=== PATIENT | male | born 1960 | race Two or more races ===

== ENCOUNTER 2024-08-01 13:00 | Day surgery (SDC) | payer MEDICARE, MEDICAID, SELFPAY ==
[2024-07-29 12:47] LABS: Basophils % (Auto) 1 % (0-2.5); Eosinophils # (Auto) 0.4 Thou/mm3 (0.0-0.5); Eosinophils % (Auto) 6 % (0-10); Hematocrit 43.9 % (41.0-53.0); Hemoglobin 14.9 g/dL (13.5-16.0); Immature Granulocytes % (Auto) 0 % (0-0); Immature Granulocytes Auto 0.01 Thou/mm3 (0.00-0.00); Lymphocytes # (Auto) 1.6 Thou/mm3 (1.0-4.8); Lymphocytes % (Auto) 25 % (10-50); Mean Corpuscular HGB Conc 33.9 g/dl (31.0-37.0); Mean Corpuscular Hemoglobin 29.3 pg (25.0-35.0); Mean Corpuscular Volume 86 fL (80-100); Monocytes # (Auto) 0.3 Thou/mm3 (0.0-0.8); Monocytes % (Auto) 5 % (0-12); Neutrophils # (Auto) 4.1 Thou/mm3 (1.8-7.7); Neutrophils % (Auto) 64 % (37-80); Nucleated Red Blood Cell % 0 /100 WBC (0); Platelet Count 169 Thou/mm3 (140-440); RDW Standard Deviation 44.2 fL (35.1-43.9); Red Blood Count 5.09 Miln/mm3 (4.50-5.90); White Blood Count 6.4 Thou/mm3 (3.8-10.6)
[2024-07-29 13:03] LABS: Partial Thromboplastin Time 29.7 Seconds (22.0-36.0); Prothrombin Time 11.4 Seconds (9.0-12.2)
[2024-07-29 13:12] LABS: Alanine Aminotransferase 27 U/L (10-49); Albumin, Serum 4.3 gm/dL (3.4-4.8); Albumin/Globulin Ratio 1.5 (1.2-2.2); Alkaline Phosphatase 73 U/L (46-116); Anion Gap 8 (7-16); Aspartate Amino Transferase 25 U/L (0-34); BUN/Creatinine Ratio 17 Ratio (12-20); Bilirubin,Total 0.3 mg/dL (0.3-1.2); Blood Urea Nitrogen 12 mg/dL (9-23); Calcium 9.5 mg/dL (8.3-10.6); Calcium (Corrected) 9.5 mg/dL (8.5-10.1); Carbon Dioxide 26.1 mMol/L (20.0-31.0); Chloride 109 mMol/L (98-107); Creatinine (Component) 0.7 mg/dL (0.6-1.3); Globulin 2.8 gm/dL (2.3-3.5); Glucose 134 mg/dL (74-106); Osmolality,Calculated 286 (275-295); Potassium 4.2 mMol/L (3.4-5.1); Sodium 143 mMol/L (136-145); Total Protein 7.1 gm/dL (5.7-8.2); eGFR > 60 See Note
[2024-08-01 13:38] VITALS: BMI 37.5
[2024-08-01 13:40] VITALS: BP 158/85; PULSE 56; RESP 13; TEMP 36.7; O2SAT 96
[2024-08-01] MEDS: RINGERS LACTATED 1000 ML 1,000 ML 100 ML IV (14:43)
[2024-08-01 15:15] VITALS: BP 106/64; PULSE 52; RESP 12; TEMP 37.2; O2SAT 95
[2024-08-01 15:25] VITALS: BP 125/72; PULSE 46; RESP 17; O2SAT 96
[2024-08-01 15:35] VITALS: BP 119/73; PULSE 51; RESP 16; O2SAT 96
[2024-08-01 15:45] VITALS: BP 125/82; PULSE 48; RESP 16; O2SAT 95
== END 2024-08-01 16:15 | disposition home or self-care (01) ==
PROVIDERS: PCP Physician Assistant; Referring Provider Surgery; Visit Provider Surgery
PROC: 0DBE8ZX Excision of Large Intestine, Via Natural or Artificial Opening Endoscopic, Diagnostic (ICD-10-PCS; CPT 45380; principal; 2024-08-01 13:00)
DX: Z12.11 Encounter for screening for malignant neoplasm of colon (principal)
CPT/HCPCS: G0121; 36415; 80053; 85025; 85610; 85730; J7120

== ENCOUNTER 2024-11-07 10:44 | Inpatient (IN) | payer MEDICARE, MEDICAID, SELFPAY ==
[2024-11-07] VITALS (15 sets, daily range): BP systolic 99–143; BP diastolic 55–76; PULSE 53–112; RESP 16–95; TEMP 36.5–40.3; O2SAT 86–98; BMI 37.1; BMI 37.3
--- NOTE | 2024-11-07 10:58 | PC.NURSE ---
PT HERE WITH C/O GENERLIZED WEAKNESS, FEVER, CHILLS, AND COUGH FOR 4 DAYS. PT VERY DIAPHORETIC
--- NOTE | 2024-11-07 11:02 | EDNOTE_ITS ---
ED Weakness RME/HPI General Chief complaint: Fever Stated complaint: FEVER/COUGH/CHILLS/WEAKNESS FOR 4 DAYS Time Seen by Provider: 11/07/24 11:00 Arrival date/time: 11/07/24 10:44 Limitations: no limitations RME / HPI RME / HPI Narrative: 63-year-old male with a history of poliomyelitis, hypertension, is brought in by EMS for generalized weakness and shortness of breath. He states he developed gross hematuria 3 days ago. Today he felt fatigued and has shortness of breath. This morning he developed abdominal pain and had a single episode of nausea and vomiting. He states he took an unknown antibiotic that was prescribed to his son when he was brought in by EMS, his oxygen was 84% on room air. He has not oxygen dependent at baseline. He denies any falls or injuries. He has had no syncopal episodes. He did arrive with a fever which triggered our sepsis alert. MD Complaint: generalized weakness Location: generalized Related Data Home Medications ?Medication ?Instructions ?Recorded ?Confirmed celecoxib 200 mg capsule 200 mg PO Q12H 08/01/2407/19 lisinopril 40 mg tablet 40 mg PO QDAY 08/01/2408/01 semaglutide (weight loss) 0.25 0.25 mg subcut Q7D 07/1908/01/24 mg/0.5 mL subcutaneous pen injector (Wegovy) tamsulosin 0.4 mg capsule 0.4 mg PO Q24H 08/01/2407/19 Allergies Allergy/AdvReac Type Severity Reaction Status Date / Time No Known Drug Allergies Allergy Unknown Verified 08/01/24 13:30 Review of Systems Review of Systems Systems Reviewed: All systems reviewed, normal except as documented ED Exam General Limitations: Present no limitations General appearance: Present alert and in no apparent distress Head Head exam: Present atraumatic Eye Eye exam: Present normal appearance, PERRL and EOMI ENT ENT exam: Present normal exam, normal oropharynx and mucous membranes moist Neck Neck exam: Present normal inspection, full ROM and trachea midline Chest Chest inspection: Present normal inspection and symmetric chest wall rise Respiratory Respiratory exam: Present normal lung sounds bilaterally Cardiovascular Cardiovascular exam: Present regular rate, normal rhythm and normal heart sounds Abdominal Exam Abdominal exam: Present soft and normal bowel sounds Extremities Exam Extremities exam: Present normal inspection and full ROM Back Exam Back exam: Present normal inspection and full ROM Neurological Exam Neurological exam: Present alert, oriented X3 and CN II-XII intact Psychiatric Psychiatric exam: Present normal affect and normal mood Skin Skin exam: Present warm, dry, intact and normal color Course Quality Measures none Orders Category Date Time Status Bedside Blood Glucose NOW Care 11/07/24 11:09 Active Bedside COVID-19 Antigen Test NOW Care 11/07/24 13:50 Active Bedside Influenza A&B Antigen Test NOW Care 11/07/24 13:53 Completed COVID-19 Screening Questionnaire NOW Care 11/07/24 14:[address] Screening NOW Care 11/07/24 11:[address] Screening NOW Care 11/07/24 12:[address] Screening X1 Care 11/07/24 11:09 Completed Emergency Department Clinician Q4H START 00 Care 11/07/24 11:09 Completed Decision to Admit X1 Care 11/07/24 14:52 Active EKG (ED ONLY) *Do not use* NOW Care 11/07/24 11:07 Completed Dupree [Urinary Catheter] QS Care 11/07/24 14:49 Active Insert IV NOW Care 11/07/24 11:09 Completed Strict Intake and Output Routine Care 11/07/24 11:[address] abd pel w con SEPSIS GLEN Stat Exams 11/07/24 11:09 Completed EKG (ED Only) Stat Exams 11/07/24 11:07 Draft XR chest 1V SEPSIS PROTOCOL Stat Exams 11/07/24 11:09 Completed BNP [B-Type Natriuretic Peptide] Stat Lab 11/07/24 11:00 Completed Blood Culture (Lab) Stat Lab 11/07/24 11:00 Received CBC Stat Lab 11/07/24 11:00 Completed Comprehensive Metabolic Panel Stat Lab 11/07/24 11:00 Completed Lactate (Lactic Acid) Stat Lab 11/07/24 11:00 Completed Lactic Acid, 3 HR Stat Lab 11/07/24 14:40 Completed Partial Thromboplastin Time Stat Lab 11/07/24 11:00 Completed Procalcitonin Stat Lab 11/07/24 11:00 Completed Prothrombin Time with INR Stat Lab 11/07/24 11:00 Completed Troponin I Stat Lab 11/07/24 11:00 Completed Troponin I Stat Lab 11/07/24 13:57 Received Type and Screen Stat Lab 11/07/24 11:00 Completed Urinalysis Stat Lab 11/07/24 13:15 Completed Urine Culture Stat Lab 11/07/24 11:09 Received Acetaminophen Tab [Tylenol ES Tab] Med 11/07/24 11:27 Discontinued 1,000 mg PO X1 ONE Ondansetron Inj [Zofran Inj] Med 11/07/24 11:25 Discontinued 4 mg IVP X1 ONE Sodium Chloride 0.9% 1000 ml [Ns] 1,914 ml Med 11/07/24 11:09 Discontinued IV 1,914 mls/hr cefTRIAXone [Rocephin] 2 gm Med 11/07/24 11:11 Discontinued SODIUM CHLORIDE 0.9% (Popper) [Ns 0.9% (P)] 50 ml IV X1 fentaNYL INJ [Sublimaze Inj] Med 11/07/24 11:25 Discontinued 25 mcg IVP X1 ONE Oxygen Delivery NOW RT 11/07/24 11:09 Completed Vital Signs Vital signs: Vital Signs Temperature 102.9 F H 11/07/24 10:58 Pulse Rate 104 H 11/07/24 10:58 Respiratory Rate 18 11/07/24 10:58 Blood Pressure 99/55 L 11/07/24 10:58 Pulse Oximetry (%) 86 L 11/07/24 10:58 Oxygen Delivery Method Room Air 11/07/24 10:58 Oxygen Flow Rate 3 11/07/24 10:58 Weakness MDM Narrative MDM Narrative:: 63-year-old male with a history of poliomyelitis, hypertension, is brought in by EMS for generalized weakness and shortness of breath. He states he developed gross hematuria 3 days ago. Today he felt fatigued and has shortness of breath. This morning he developed abdominal pain and had a single episode of nausea and vomiting. He states he took an unknown antibiotic that was prescribed to his son when he was brought in by EMS, his oxygen was 84% on room air. He has not oxygen dependent at baseline. He denies any falls or injuries. He has had no syncopal episodes. He did arrive with a fever which triggered our sepsis alert. On initial exam, patient was febrile and had mild tachycardia. Initial blood pressure was 99/55. Oxygenation was 86% on room air. He was given 2 L of oxygen via nasal cannula and this improved. CBC is unremarkable. Metabolic panel reveals hyperglycemia at 155 and is otherwise unremarkable. UA reveals 100 leukocytes and 7 erythrocytes. Initial troponin was mildly elevated. BNP is unremarkable. Enhanced CT of the chest, abdomen, and pelvis was obtained which revealed cystitis pattern and a 2 m stone in the bladder. There horseshoes shaped kidneys along with hydronephrosis. No evidence of pneumonia. Patient was given 2 L of normal saline in addition to ceftriaxone. He was given a gram of acetaminophen. His blood pressure did improve and his fever resolved. We did initially try to wean him off oxygen and he desaturated down to 88% on room air while at rest. Cannot explain his hypoxia at this time. Patient may benefit from a CTA of his chest and abdomen however he just received contrast studies. This discussed with the attending ER physician. We will admit to medicine to continue care and consider CT of the chest to assess for possible pulmonary emboli as a source of his elevated troponin and hypoxia. Our hospitalist was contacted at approximately 1450 p.m. and agreed to see the patient. Patient data External records reviewed:: EMS form Clinical information provided by:: patient and EMS Social determinants that could affect healthcare access:: none Patient has the following chronic illnesses:: Hypertension How is presenting disease/condition affected by chronic disease/condition?: uneffected by Evaluation data The following diagnostics were reviewed and interpreted by me:: EKG tracing(s) (Sinus tachycardia at [address] bpm. [address] changes.) Lab and/or radiology exams considered but not ordered:: CTA of the chest Interpretation Summary: Sepsis, UTI, elevated troponin Medications / Prescriptions Medications or Prescriptions considered but not ordered:: n/a Medication administrations:: Medication Administration History Discontinued Medications Acetaminophen (Acetaminophen 500 Mg Tablet) 1,000 mg PO X1 ONE Stop: 11/07/24 11:28 Last Admin: 11/07/24 12:00 Dose: 1,000 mg Documented By: [facility] Fentanyl Citrate (Fentanyl Cit Inj 50 Mcg/Ml Amp 2ml) 25 mcg IVP X1 ONE Stop: 11/07/24 11:26 Last Admin: 11/07/24 12:01 Dose: 25 mcg Documented By: TONIO Sodium Chloride (Ns) 1,914 mls @ 1,914 mls/hr 30 ml/kg infuse over 60 min (1914 ml) IV .Q1H ONE Stop: 11/07/24 12:08 Last Infusion: 11/07/24 13:17 Dose: Infused Documented By: [facility] Admin: 11/07/24 11:23 Dose: 1,914 mls/hr Documented By: [facility] Ceftriaxone Sodium 2 gm/ (Sodium Chloride) 50 mls @ 100 mls/hr IV X1 ONE Stop: 11/07/24 11:40 Last Infusion: 11/07/24 11:54 Dose: Infused Documented By: Admin: 11/07/24 11:20 Dose: 100 mls/hr Documented By: [facility] Ondansetron HCl (Ondansetron Inj 2 Mg/Ml Inj 2 Ml) 4 mg IVP X1 ONE; Protocol Stop: 11/07/24 11:26 Last Admin: 11/07/24 11:59 Dose: 4 mg Documented By: [facility] See above Consultations Consultation(s) initiated? (list below): No Diagnosis Weakness Differential Diagnosis: anemia, hypoglycemia, sepsis and dehydration Most likely diagnosis given after review of the tests above:: Sepsis, UTI Admission Indicated Admission indicated?: indicated Admission Request Was there a request for admission?: Yes Admission Attestation Admission request attestation: Discussed case with [] from Hospitalist service regarding admission. Discussed patients ED course, exam findings, labs, and radiology results. The Hospitalist [agrees,declines] to accept the patient for admission. Disposition Plan Disposition Plan: Admit Critical Care Time Critical Care Time Critical Care Time: Yes Total Critical Care Time (min.): 45 Attestation: The high probability of sudden, clinically significant deterioration in the patient's condition required the highest level of my preparedness to intervene urgently. The services I provided to this patient were to treat and/or prevent clinically significant deterioration. Services included the following: chart data review, reviewing nursing notes and/or old charts, documentation time, pci security consultant collaboration regarding findings and treatment options, medication orders and management, direct patient care, vital sign assessments and ordering, interpreting and reviewing diagnostic studies and lab tests. Aggregate critical care time includes only time during which I was engaged in work directly related to the patient's care, as described above, whether at bedside or elsewhere in the Emergency Department. It did not include time spent performing other reported procedures or the services of residents, students, nurses or physician assistants. Discharge Plan Plan Patient Disposition: Admit Acute Care w/in Hospital Patient condition on transfer: Stable Prescriptions/Referrals Prescriptions/Med Rec: No Action Wegovy 0.25 mg/0.5 mL pen injector 0.25 mg SUBCUT Q7D lisinopril 40 mg tablet 40 mg PO QDAY Patient Comments: TAKE ONE TABLET BY MOUTH EVERY DAY. tamsulosin 0.4 mg capsule 0.4 mg PO Q24H Patient Comments: TAKE ONE CAPSULE BY MOUTH EVERY DAY 1/2 hour following the same meal each day.. celecoxib 200 mg capsule 200 mg PO Q12H Patient Comments: TAKE 1 CAPSULE BY MOUTH TWICE A DAY Referrals: Raphael Ruiz MD [Primary Care Provider] - In 1 week Problem List Clinical Impression: Sepsis, Acute UTI, Hypoxia, Elevated troponin Patient/Caregiver Discharge Instructions Print Language: Chinese Stand Alone Forms: Teresa Award Info., Patient Portal Info Letter
--- NOTE | 2024-11-07 11:07 | EKG_ITS ---
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[id number] Requested By: Eric Omer Order Number: [id number] Reading MD: Eric Omer Measurements Intervals [place] Rate: 100 P: 12 TX: 140 QRS: -41 QRSD: 98 T: 6 QT: 314 QTc: 407 Interpretive Statements SINUS TACHYCARDIA WITH OCCASIONAL VENTRICULAR PREMATURE COMPLEXES LEFT AXIS DEVIATION [QRS AXIS < -30] PATTERN CONSISTENT WITH PULMONARY DISEASE Compared to ECG 04/03/2022 09:18:32 Ventricular premature complex(es) now present Sinus bradycardia no longer present Incomplete right bundle-branch block no longer present Myocardial infarct finding no longer present /store/S0/[id number]/ecg/[id number].pdf
--- NOTE | 2024-11-07 11:09 | XR_ITS ---
Examination: CT abdomen with intravenous contrast CT pelvis with intravenous contrast 2-D coronal reconstructions 2-D sagittal reconstructions Date and time of exam:November 07, 2024 1306 hours Comparison May 11, 2018 INDICATIONS: Hematuria vomiting abdominal pain today, sepsis alert. CTDI: vol (mGy) 12.4 DLP: (mGycm) 794 Technique: Multiple axial sections of the abdomen and pelvis have been obtained. 64 slice high-resolution scanner used. 3 mm axial sections have been obtained, post intravenous injection 60 cc [id number] 2-D sagittal, coronal reconstructions obtained. Low dose protocols were performed. One or more of the following dose reduction techniques were used; automated exposure control, adjustment of the mA and/or KV according to patient size, use of iterative reconstruction technique. 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
--- NOTE | 2024-11-07 11:09 | XR_ITS ---
Examination: AP chest single view TECHNIQUE: Portable sitting AP chest single view Date and time: November 07, 2024 1153 hours INDICATIONS: Sepsis protocol FINDINGS: Mild enlargement left ventricle Moderate vascular congestion. No lobar pneumonia Prominent osteopenia IMPRESSION: Moderate vascular congestion No lobar pneumonia
[2024-11-07] MEDS: cefTRIAXone 2 GM in SODIUM CHLORIDE 0.9% (Popper) 50 ML IV (11:20)
[2024-11-07] MEDS: SODIUM CHLORIDE 0.9% 1000 ML 1,914 ML 1914 ML IV (11:23)
--- NOTE | 2024-11-07 11:25 | PC.NURSE ---
PT STATED TO PA AND I THAT IF HIS HEART STOPS HE WANTS TO BE LET GO. HE DOESNT WANT COMPRESSIONS OR INTUBATION WILL FILL OUT A POLST FOR PT
[2024-11-07 11:27] LABS: Lactate (Lactic Acid) 3.5 mMol/L (0.4-2.0)
[2024-11-07 11:36] LABS: Basophils # (Auto) 0.0 Thou/mm3 (0.0-0.2); Basophils % (Auto) 0 % (0-2.5); Eosinophils # (Auto) 0.1 Thou/mm3 (0.0-0.5); Eosinophils % (Auto) 1 % (0-10); Hematocrit 39.1 % (41.0-53.0); Hemoglobin 13.6 g/dL (13.5-16.0); Immature Granulocytes Auto 0.03 Thou/mm3 (0.00-0.00); Lymphocytes # (Auto) 1.1 Thou/mm3 (1.0-4.8); Lymphocytes % (Auto) 16 % (10-50); Mean Corpuscular HGB Conc 34.8 g/dl (31.0-37.0); Mean Corpuscular Hemoglobin 29.8 pg (25.0-35.0); Mean Corpuscular Volume 86 fL (80-100); Monocytes # (Auto) 0.3 Thou/mm3 (0.0-0.8); Monocytes % (Auto) 4 % (0-12); Neutrophils # (Auto) 5.4 Thou/mm3 (1.8-7.7); Neutrophils % (Auto) 79 % (37-80); Nucleated Red Blood Cell # 0.00 Thou/mm3 (0.00-0.00); Nucleated Red Blood Cell % 0 /100 WBC (0); Platelet Count 173 Thou/mm3 (140-440); RDW Standard Deviation 43.6 fL (35.1-43.9); Red Blood Count 4.57 Miln/mm3 (4.50-5.90); White Blood Count 6.9 Thou/mm3 (3.8-10.6)
[2024-11-07 11:50] LABS: INR 1.1 (0.9-1.3); Partial Thromboplastin Time 28.1 Seconds (22.0-36.0); Prothrombin Time 12.4 Seconds (9.0-12.2)
[2024-11-07] MEDS: ONDANSETRON INJ 2 MG/ML INJ 2 ML 4 MG IVP (11:59)
[2024-11-07] MEDS: ACETAMINOPHEN 500 MG TABLET 1000 MG PO (12:00)
[2024-11-07] MEDS: fentaNYL CIT INJ 50 mCg/ML AMP 2ML 25 MCG IVP (12:01)
[2024-11-07 12:11] LABS: Alanine Aminotransferase 25 U/L (10-49); Albumin, Serum 4.3 gm/dL (3.4-4.8); Albumin/Globulin Ratio 1.7 (1.2-2.2); Alkaline Phosphatase 57 U/L (46-116); Anion Gap 14 (7-16); Aspartate Amino Transferase 41 U/L (0-34); BUN/Creatinine Ratio 13 Ratio (12-20); Bilirubin,Total 0.9 mg/dL (0.3-1.2); Blood Urea Nitrogen 12 mg/dL (9-23); Calcium 8.9 mg/dL (8.3-10.6); Calcium (Corrected) 8.9 mg/dL (8.5-10.1); Carbon Dioxide 21.3 mMol/L (20.0-31.0); Chloride 106 mMol/L (98-107); Creatinine (Component) 0.9 mg/dL (0.6-1.3); Estimated Creatinine Clearance 92.6 mL/min (>60); Globulin 2.6 gm/dL (2.3-3.5); Glucose 155 mg/dL (74-106); Osmolality,Calculated 283 (275-295); Potassium 4.2 mMol/L (3.4-5.1); Procalcitonin 0.32 ng/ml (0.0-0.49); Sodium 141 mMol/L (136-145); Total Protein 6.9 gm/dL (5.7-8.2); eGFR > 60 See Note
[2024-11-07 12:18] LABS: Troponin I 0.052 ng/mL (0.0-0.045)
[2024-11-07 13:27] LABS: Collection Type, Urine Voided
[2024-11-07 13:46] LABS: Bacteria,Urine Rare; Bilirubin,Urine Negative (Negative); Blood,Urine 1+ (Negative); Clarity,Urine Turbid (Clear/Hazy); Color,Urine Yellow (Lt Yel-Yel); Glucose, Urine Negative (Negative); Ketones,Urine Negative (Negative); Leukocyte Esterase,Urine Positive (Negative); Nitrite,Urine Negative (Negative); PH,Urine 6.5 (5.0-7.0); Protein,Urine Trace (Neg - Trace); RBC,Urine 7 /hpf (0-3); Specific Gravity,Urine 1.012 (1.001-1.035); Squamous Epithelial Cell,Urine 1 /hpf (0-5); Urobilinogen,Urine Negative mg/dL (0.0-1.0); WBC,Urine 100 /hpf (0-5)
[2024-11-07 14:20] LABS: B-Type Natriuretic Peptide 20 pg/mL (0-100)
[2024-11-07 14:24] LABS: Reflex Lactate? Y
[2024-11-07 14:48] LABS: Lactic Acid, 3 HR 0.8 mMol/L (0.4-2.0)
[2024-11-07 14:53] LABS: Troponin I 0.180 ng/mL (0.0-0.045)
--- NOTE | 2024-11-07 15:00 | XR_ITS ---
Examination: Abdomen sonogram, Limited Date and time of exam: 09/07/2024 1526 hours INDICATIONS: Fever dysuria one week Technique: Real-time saavedra scale transabdominal sonographic images of the upper abdomen obtained. Findings: Gallbladder sludge, negative for gallstones Gallbladder wall 0.3 cm Common bile duct 0.2 cm Pancreatic head 4.1 cm with cyst in the tail 5 cm Liver 15.68 cm fatty infiltration lobular contour Normal hepatopedal portal venous flow Patent IVC IMPRESSION: Negative for cholelithiasis, negative for cholecystitis Pancreatic head 4.1 cm Technologist describes cyst in the tail the pancreas which is not evident on the CT examination Gallbladder sludge, negative for cholelithiasis
--- NOTE | 2024-11-07 15:04 | PC.NURSE ---
HOSPITALIST HERE TO SEE PT
--- NOTE | 2024-11-07 15:26 | ESHP_ITS ---
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 Patient was found to have urine infection and CT was significant for cystitis. 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 Calcified gallbladder. Liver ultrasound was negative. Patient was admitted for sepsis likely due to UTI. Patient was given sepsis bolus. Will be continued on Rocephin 1 g and will be followed up on blood cultures and urine culture. IV fluids given as well. Tamsulosin was resumed. Will continue Tylenol for pain. If needed patient can be given [place]. All labs and orders were reviewed. I discussed and supervised with the physician general internal medicine physician who took care of this patient. I personally saw and examined the patient. I agree with most of the assessment and plan. Disclaimer: Despite multiple revisions, due to the dictation software being used, the document bellow may not be free of grammatical errors including phonetic/typographic errors. However, this does not deter from our commitment to providing health care in the patient's best interest in mind. Plan of care discussed with attending Physician Dr. Bimal Reis MD PGY-3 Documentation for date of: 11/07/24 HPI History of Present Illness History of present illness: Mr. Ly is a 63-year-old male with a hx of remote polio as a child with residual LLE weakness, HTN, HLD, hx of hematuria in 2021 (prevously seen at [facility], and had cysto with dilation of urethra), BPH followed by Brannon who was is brought in by EMS for generalized weakness and shortness of breath. He states he developed gross hematuria 3 days ago after having held his bladder because the restroom was occupied. Today he felt fatigued and has shortness of breath. This morning he developed abdominal pain and had a single episode of nausea and vomiting. He states he took an amoxicillin antibiotic that was prescribed to his son because his throat felt sore. When he was brought in by EMS, his oxygen was 84% on room air. He has not oxygen dependent at baseline. ROS pt endorses fever, chills, general malaise, dysuria, 1x n/v pt denies, chest pain, vision changes, headaches, flank pain Surgical Hx L femur fracture surgery 8 years ago Social Hx denies etoh use denies tobacco use denies other drugs pt has 6 children independent of IADLs and ADLs ED course dx * wbc wnl, hgb stable, lactic acid wnl, procalcitonin wnl, * troponin uptrending tx * CTX 1 gm 1x * 2L NS * 1gm APAP for fever * fentynl 25 mcg 1x ivp * supplemental oxygen PRN Review of Systems Review of Systems Narrative Review of Systems: as per hpi Past Medical History Surgical History OTHER SURGICAL HX: Left femur surgery 8 years ago Exam Vital Signs Temp Pulse Resp BP Pulse Ox O2 Del Method O2 Flow Rate 98.4 F 55 L 19 100/59 L 93 L Room Air 3 11/07/24 13:23 11/07/24 14:00 11/07/24 14:00 11/07/24 14:00 11/07/24 14:00 11/07/24 14:00 11/07/24 13:22 Narrative Exam GENERAL: no acute distress, AAO x3, comfortably laying in bed HEENT: Head AT/ NC. Mucous membranes moist. PERRL. no tonsilar exudates. NECK: Supple, no lymphadenopathy, no carotid bruits. CARDIOVASCULAR: RRR. Normal S1/S2, No m/r/g. No pitting edema of bilateral LEs. RESPIRATORY: CTAB. No wheezing, rhonchi, crackles. GASTROINTESTINAL: Abdomen soft, non tender no palpable masses. Bowel sounds present, joyce sign negative MUSCULOSKELETAL:? No cyanosis or edema, no visible joint swelling. Muscle tape on R knee NEUROLOGICAL: CN II-XII grossly intact. No focal deficits. Sensation intact, symmetric. per pt L leg wkness is chronic. PSYCHIATRIC: Awake and alert, not agitated, normal mood and affect. SKIN: No obvious rashes, no jaundice, normal turgor. Results: Labs 11/08/24 03:20 11/08/24 03:20 Labs: Short CBC 11/07/24 Range/Units 11:00 WBC 6.9 (3.8-10.6) Thou/mm3 Hgb 13.6 (13.5-16.0) g/dL Hct 39.1 L (41.0-53.0) % Plt Count 173 (140-440) Thou/mm3 BMP 11/07/24 11:00 Sodium 141 Potassium 4.2 Chloride 106 Carbon Dioxide 21.3 BUN 12 Creatinine 0.9 Glucose 155 H Calcium 8.9 Cardiac Enzymes 11/07/24 11/07/24 Range/Units 11:00 13:57 Troponin I 0.052 H* 0.180 H* (0.0-0.045) ng/mL Liver Function 11/07/24 Range/Units 11:00 Total Bilirubin 0.9 (0.3-1.2) mg/dL AST 41 H (0-34) U/L ALT 25 (10-49) U/L Alkaline Phosphatase 57 (46-116) U/L Albumin 4.3 (3.4-4.8) gm/dL Urine 11/07/24 Range/Units 13:15 Urine Color Yellow (Lt Yel-Yel) Urine Clarity Turbid A (Clear/Hazy) Urine pH 6.5 (5.0-7.0) Ur Specific [place] 1.012 (1.001-1.035) Urine Protein Trace (Neg - Trace) Urine Glucose (UA) Negative (Negative) Quality Measures Quality Measures none Advance care planning discussed with:: patient and spouse Medications Home Medications and Allergies Home Medications ?Medication ?Instructions ?Recorded ?Confirmed ?Type celecoxib 200 mg capsule 200 mg PO Q12H 08/01/2410/19 History lisinopril 40 mg tablet 40 mg PO QDAY 08/01/2411/07 History semaglutide (weight loss) 0.25 0.25 mg subcut Q7D 07/1911/07/24 History mg/0.5 mL subcutaneous pen injector (Wegovy) Held on 11/07/24. Instructions: Doctor's Order tamsulosin 0.4 mg capsule 0.4 mg PO Q24H 08/01/2410/19 History atorvastatin 20 mg tablet 20 mg PO QDAY 11/07/2411/07 History ibuprofen 800 mg tablet 800 mg PO Q8H PRN pain 11/0711/07/24 History Allergies Allergy/AdvReac Type Severity Reaction Status Date / Time No Known Drug Allergies Allergy Unknown Verified 08/01/24 13:30 Visit Medications Discontinued Medications Acetaminophen (Acetaminophen 500 Mg Tablet) 1,000 mg PO X1 ONE Stop: 11/07/24 11:28 Last Admin: 11/07/24 12:00 Dose: 1,000 mg Fentanyl Citrate (Fentanyl Cit Inj 50 Mcg/Ml Amp 2ml) 25 mcg IVP X1 ONE Stop: 11/07/24 11:26 Last Admin: 11/07/24 12:01 Dose: 25 mcg Sodium Chloride (Ns) 1,914 mls @ 1,914 mls/hr 30 ml/kg infuse over 60 min (1914 ml) IV .Q1H ONE Stop: 11/07/24 12:08 Last Infusion: 11/07/24 13:17 Dose: Infused Ceftriaxone Sodium 2 gm/ (Sodium Chloride) 50 mls @ 100 mls/hr IV X1 ONE Stop: 11/07/24 11:40 Last Infusion: 11/07/24 11:54 Dose: Infused Ondansetron HCl (Ondansetron Inj 2 Mg/Ml Inj 2 Ml) 4 mg IVP X1 ONE; Protocol Stop: 11/07/24 11:26 Last Admin: 11/07/24 11:59 Dose: 4 mg Assessment & Plan Plan Mr. Alarcon is a 63 yo gentleman with remote hx of polio as a child with residual LLE wkness, HTN, obesity on wegovy, BPH (followed by [facility]), who was admitted due to sepsis 2/2 UTI (w bladder stone 2mm),pending Ucx and evidence of end organ damage as evidenced by elevated troponins. CTAP showed GB calcification, however US negative for cholecystitis or cholelitiasis, on exam joyce sign negative. Pt continues on CTX. #sepsis with evidence of end organ damage 2/2 #UTI #Bladder stone 2mm #Gross hematuria qSOFA 2 SIRS: Febrile, hypoxic on intake, now on RA, satting well. pt endorses dysuria, and chills, no shortness of breath pt was febrile on intake with elevated trops Dx -CTAP with cystitis pattern, R horseshoe kidney with cysts, and hydronephrosis, calcified GB (see #cholecystitis vs cholecystitis r/o) -CXR negative -procalcitonin wnl -lactic acid wnl -hgb stable at 13 - UA + leukocyte esterase, -nitrites - Ucx pending Tx - cont CTX 1gm qd (11/07- ) - cont IVF LR 75ml/hr - Multimodal pain APAP 650 q6hr PRN [place] 5/325 q6hr prn #Hx urethral stricture with dilation 2021 -belcher catheter in place -bladder scan PRN #sepsis with end organ damage 2/ #Elevated troponin- Uptrending on intake troponin elevated at 0.052, on repeat draw 3 hrs later increased to 0.180 EKG with sinus tachycardia -continue to trend troponin q6hr #Cholecystitis vs cholelitiasis -R/o #Gallbladder calcifications on CTAP joyce sign negative [place] triad negative: no jaundice, no RUQ pain, no fevers Dx - GB ultrasound Gallbladder sludge, negative for cholelithiasis Negative for cholecytitis , Pancreatic head 4.1 cm - LFT wnl - Dr. Garcia curbsided to discuss calcified GB noted on CTAP, however GB ultrasound doesnt note calcifications, surgery not indicated at this time. Chronic #nerve pain -cont home celecoxib 200mg BID #HTN -cont home lisinopril 40mg qd #HLD -cont home atorva 20 mg qhs #BPH pt followed by Dr. Allred -cont home tamsulosin 0.4 mg PO qd #Obesity -A1c pending -on wegovy #hx polio pt reports chronic LLE wkness, pt able to ambulate at baseline Dispo: pending Ucx, pending GB ultrasound, continues on Abx. Diet: Low sodium diet Bowel Reg: Senna PRN, Mirilax PRN VTE ppx: lovenox 40 qd GI ppx: Protonix 40 qd Code status: DNR Case discussed with my senior resident Dr. Reis Case discussed with my attending Dr. Bimal Oliveira MD PGY-1 Attending Provider Attestation/Addendum I, Haily Wallis, DO, attest that I was physically present for the santos portions of the service and evaluated the patient with the resident and I reviewed and discussed the case with the resident and agree with the resident's findings and plans of care as documented above Patient is a 63 year old male with Pmhx of BPH, T2DM, HTN, HLD who presented to the ED due to complaints of sore throat and hematuria this morning. Patient stated he woke up feeling very weak and noted sore throat. He denies any recent sick contacts or travel. He took a dose of augmentin that belonged to his son. However, he went to the bathroom and noted blood in his urine and dysuria. He denies any pain radiating to his rectum or tip of his penis that may point to prostatitis. Patient denies frequent UTIs. He takes flomax at home for BPH. In the ED, patient was found to be hypoxic per sign out with O2 sat of 86% and T of 104.5. Patient noted to have detectable troponins. However, patient denied any active chest pain. Patient was hypotensive on arrival, but improved with IV fluids. Will admit patient to telemetry for further workup and medical management of sepsis 2/2 UTI. At time of my evaluation, belcher was placed and urine was clear yellow, no blood noted. Patient was also on room air and reported feeling improved with fluids. Will continue with IV rocephin and fluids. Will f/u with urine and blood cultures. Will continue to trend troponins. Suspect type 2 nstemi in the setting of sepsis. EKG does not show any acute ST or T wave changes.
[2024-11-07] MEDS: PANTOPRAZOLE 40 MG TABLET PO (15:54)
[2024-11-07] MEDS: ENOXAPARIN SOD INJ 40 MG/0.4 ML SYRINGE SC (15:55)
[2024-11-07] MEDS: RINGERS LACTATED 1000 ML 1,000 ML 75 ML IV (15:58)
--- NOTE | 2024-11-07 16:08 | PC.NURSE ---
CALLED DR. JERNIGAN ABOUT UNGRADING PT TO TELE DUE TO ELEVATED TROPS AND SHE WILL PUT ORDERS IN
[2024-11-07] MEDS: HYDROcodone/APAP 5/325 TABLET 1 TAB PO (17:35)
[2024-11-07] MEDS: TAMSULOSIN HCL 0.4 MG CAPSULE PO (17:35)
[2024-11-07 18:35] LABS: Troponin I 0.281 ng/mL (0.0-0.045)
[2024-11-07] MEDS: CELECOXIB 100 MG CAPSULE 200 MG PO (20:24)
[2024-11-07] MEDS: ATORVASTATIN CALCIUM 20 MG TABLET PO (20:24)
[2024-11-07] MEDS: MELATONIN 3 MG TABLET PO (21:26)
[2024-11-07 21:36] LABS: Troponin I 0.281 ng/mL (0.0-0.045)
[2024-11-08] VITALS (10 sets, daily range): BP systolic 106–133; BP diastolic 59–80; PULSE 45–66; RESP 13–96; TEMP 35.9–36.9; O2SAT 96–99; BMI 37.3
[2024-11-08 03:33] LABS: Basophils # (Auto) 0.0 Thou/mm3 (0.0-0.2); Basophils % (Auto) 0 % (0-2.5); Eosinophils # (Auto) 0.3 Thou/mm3 (0.0-0.5); Eosinophils % (Auto) 5 % (0-10); Hematocrit 32.9 % (41.0-53.0); Hemoglobin 11.2 g/dL (13.5-16.0); Immature Granulocytes Auto 0.01 Thou/mm3 (0.00-0.00); Lymphocytes # (Auto) 1.8 Thou/mm3 (1.0-4.8); Lymphocytes % (Auto) 31 % (10-50); Mean Corpuscular HGB Conc 34.0 g/dl (31.0-37.0); Mean Corpuscular Hemoglobin 29.5 pg (25.0-35.0); Mean Corpuscular Volume 87 fL (80-100); Monocytes # (Auto) 0.8 Thou/mm3 (0.0-0.8); Monocytes % (Auto) 13 % (0-12); Neutrophils # (Auto) 2.9 Thou/mm3 (1.8-7.7); Neutrophils % (Auto) 50 % (37-80); Nucleated Red Blood Cell # 0.00 Thou/mm3 (0.00-0.00); Nucleated Red Blood Cell % 0 /100 WBC (0); Platelet Count 117 Thou/mm3 (140-440); RDW Standard Deviation 45.5 fL (35.1-43.9); Red Blood Count 3.80 Miln/mm3 (4.50-5.90); White Blood Count 5.8 Thou/mm3 (3.8-10.6)
[2024-11-08 03:44] LABS: Glucose Estimated Average 123 mg/dL (80-131); Hemoglobin A1C 5.9 % Hgb (4.8-6.0)
[2024-11-08 04:21] LABS: Alanine Aminotransferase 20 U/L (10-49); Albumin, Serum 3.4 gm/dL (3.4-4.8); Albumin/Globulin Ratio 1.5 (1.2-2.2); Alkaline Phosphatase 49 U/L (46-116); Anion Gap 5 (7-16); Aspartate Amino Transferase 28 U/L (0-34); BUN/Creatinine Ratio 14 Ratio (12-20); Bilirubin,Total 0.4 mg/dL (0.3-1.2); Blood Urea Nitrogen 10 mg/dL (9-23); Calcium 8.2 mg/dL (8.3-10.6); Calcium (Corrected) 8.7 mg/dL (8.5-10.1); Carbon Dioxide 27.6 mMol/L (20.0-31.0); Chloride 110 mMol/L (98-107); Creatinine (Component) 0.7 mg/dL (0.6-1.3); Estimated Creatinine Clearance 119.7 mL/min (>60); Globulin 2.2 gm/dL (2.3-3.5); Glucose 107 mg/dL (74-106); Magnesium 1.6 mg/dL (1.6-2.6); Osmolality,Calculated 283 (275-295); Phosphorous 3.8 mg/dL (2.4-5.1); Potassium 3.8 mMol/L (3.4-5.1); Sodium 143 mMol/L (136-145); Total Protein 5.6 gm/dL (5.7-8.2); eGFR > 60 See Note
[2024-11-08 04:22] LABS: Troponin I 0.214 ng/mL (0.0-0.045)
[2024-11-08] MEDS: RINGERS LACTATED 1000 ML 1,000 ML 75 ML IV (05:08)
--- NOTE | 2024-11-08 07:40 | ESPR_ITS ---
<Statement entered by Suhas Reis MD - 11/08/24 14:47> Patient was seen and examined at the bedside. No acute overnight events reported. Patient had fever spike last night.Currently awaiting BCx and UCx. Procalcitonin is negative.Continue ceftraxione 1g once a day. pending echo. Repeat EKG was normal as Trop I peaked and downtrended. Will follow up with Blood cx. I discussed and supervised with the partner marketing intern physician who took care of this patient. I personally saw and examined the patient. I agree with most of the assessment and plan. Disclaimer: Despite multiple revisions, due to the dictation software being used, the document bellow may not be free of grammatical errors including phonetic/typographic errors. However, this does not deter from our commitment to providing health care in the patient's best interest in mind. Plan of care discussed with attending Physician Dr. Bimal Reis MD PGY-3 Documentation for date of: 11/08/24 Subjective Subjective Interval history: No acute events overnight pt reports that he did not have the most restful night sleeping but no other complaints no fever, no chills, no shortness of breath BM this morning Exam Vital Signs Temp Pulse Resp BP Pulse Ox O2 Del Method O2 Flow Rate 97.4 F 52 L 16 133/73 H 99 Room Air 3 11/08/24 04:00 11/08/24 06:31 11/08/24 06:31 11/08/24 04:00 11/08/24 04:00 11/08/24 04:00 11/07/24 13:22 Narrative Exam GENERAL: no acute distress, AAO x3, comfortably laying in bed HEENT: Head AT/ NC. Mucous membranes moist. PERRL. no tonsilar exudates. NECK: Supple, no lymphadenopathy, no carotid bruits. CARDIOVASCULAR: RRR. Normal S1/S2, No m/r/g. No pitting edema of bilateral LEs. RESPIRATORY: CTAB. No wheezing, rhonchi, crackles. GASTROINTESTINAL: Abdomen soft, non tender no palpable masses. Bowel sounds present, MUSCULOSKELETAL:? No cyanosis or edema, no visible joint swelling. Muscle tape on R knee NEUROLOGICAL: CN II-XII grossly intact. No focal deficits. Sensation intact, symmetric. per pt L leg wkness is chronic. PSYCHIATRIC: Awake and alert, not agitated, normal mood and affect. SKIN: No obvious rashes, no jaundice, normal turgor. Objective Labs 11/08/24 03:20 11/08/24 03:20 Labs: Laboratory Results - last 24 hr 11/07/24 11/07/24 11/07/24 11:00 13:15 13:57 WBC 6.9 RBC 4.57 Hgb 13.6 Hct 39.1 L MCV 86 MCH 29.8 MCHC 34.8 RDW Std Deviation 43.6 Plt Count 173 Neut % (Auto) 79 Lymph % (Auto) 16 [place] % (Auto) 4 Eos % (Auto) 1 Baso % (Auto) 0 Neut # (Auto) 5.4 Lymph # (Auto) 1.1 [place] # (Auto) 0.3 Eos # (Auto) 0.1 Baso # (Auto) 0.0 Immature Gran # (Auto) 0.03 H Absolute Nucleated RBC 0.00 Immature Gran % 0 Nucleated RBC % 0 PT 12.4 H INR 1.1 APTT 28.1 Sodium 141 Potassium 4.2 Chloride 106 Carbon Dioxide 21.3 Anion Gap 14 BUN 12 Creatinine 0.9 Estim Creat Clear Calc 92.6 eGFR > 60 BUN/Creatinine Ratio [address] Glu mg/dL Hemoglobin A1c Calculated Osmolality 283 Lactic Acid 3.5 H Calcium 8.9 Corrected Calcium 8.9 Phosphorus Magnesium Total Bilirubin 0.9 AST 41 H ALT 25 Alkaline Phosphatase 57 Troponin I 0.052 H* 0.180 H* B-Natriuretic Peptide 20 Total Protein 6.9 Albumin 4.3 Globulin 2.6 Albumin/Globulin Ratio 1.7 Procalcitonin 0.32 Ur Collection Type Voided Urine Color Yellow Urine Clarity Turbid A Urine pH 6.5 Ur Specific [place] 1.012 Urine Protein Trace Urine Glucose (UA) Negative Urine Ketones Negative Urine Blood 1+ A Urine Nitrite Negative Urine Bilirubin Negative Urine Urobilinogen (Auto) Negative Ur Leukocyte Esterase Positive Urine RBC 7 H Urine WBC 100 H Ur Squamous Epith Cells 1 Urine Bacteria Rare Blood Type O Positive Antibody Screen NEGATIVE Blood Bank Wristband ID Yes 11/07/24 11/07/24 11/07/24 14:40 17:53 20:59 WBC RBC Hgb Hct MCV MCH MCHC RDW Std Deviation Plt Count Neut % (Auto) Lymph % (Auto) [place] % (Auto) Eos % (Auto) Baso % (Auto) Neut # (Auto) Lymph # (Auto) [place] # (Auto) Eos # (Auto) Baso # (Auto) Immature Gran # (Auto) Absolute Nucleated RBC Immature Gran % Nucleated RBC % PT INR APTT Sodium Potassium Chloride Carbon Dioxide Anion Gap BUN Creatinine Estim Creat Clear Calc eGFR BUN/Creatinine Ratio Glucose Estimated Ave Glu mg/dL Hemoglobin A1c Calculated Osmolality Lactic Acid 0.8 Calcium Corrected Calcium Phosphorus Magnesium Total Bilirubin AST ALT Alkaline Phosphatase Troponin I 0.281 H* 0.281 H* B-Natriuretic Peptide Total Protein Albumin Globulin Albumin/Globulin Ratio Procalcitonin Ur Collection Type Urine Color Urine Clarity Urine pH Ur Specific [place] Urine Protein Urine Glucose (UA) Urine Ketones Urine Blood Urine Nitrite Urine Bilirubin Urine Urobilinogen (Auto) Ur Leukocyte Esterase Urine RBC Urine WBC Ur Squamous Epith Cells Urine Bacteria Blood Type Antibody Screen Blood Bank Wristband ID 11/08/24 03:20 WBC 5.8 RBC 3.80 L Hgb 11.2 L D Hct 32.9 L MCV 87 MCH 29.5 MCHC 34.0 RDW Std Deviation 45.5 H Plt Count 117 L D Neut % (Auto) 50 Lymph % (Auto) 31 [place] % (Auto) 13 H Eos % (Auto) 5 Baso % (Auto) 0 Neut # (Auto) 2.9 Lymph # (Auto) 1.8 [place] # (Auto) 0.8 Eos # (Auto) 0.3 Baso # (Auto) 0.0 Immature Gran # (Auto) 0.01 H Absolute Nucleated RBC 0.00 Immature Gran % 0 Nucleated RBC % 0 PT INR APTT Sodium 143 Potassium 3.8 Chloride 110 H Carbon Dioxide 27.6 Anion Gap 5 L BUN 10 Creatinine 0.7 Estim Creat Clear Calc 119.7 eGFR > 60 BUN/Creatinine Ratio 14 [address]ucose [address] Glu mg/dL 123 Hemoglobin A1c 5.9 Calculated Osmolality 283 Lactic Acid Calcium 8.2 L Corrected Calcium 8.7 Phosphorus 3.8 Magnesium 1.6 Total Bilirubin 0.4 D AST 28 ALT 20 Alkaline Phosphatase 49 Troponin I 0.214 H* B-Natriuretic Peptide Total Protein 5.6 L Albumin 3.4 D Globulin 2.2 L Albumin/Globulin Ratio 1.5 Procalcitonin Ur Collection Type Urine Color Urine Clarity Urine pH Ur Specific [place] Urine Protein Urine Glucose (UA) Urine Ketones Urine Blood Urine Nitrite Urine Bilirubin Urine Urobilinogen (Auto) Ur Leukocyte Esterase Urine RBC Urine WBC Ur Squamous Epith Cells Urine Bacteria Blood Type Antibody Screen Blood Bank Wristband ID Quality Measures Quality Measures none Advance care planning discussed with:: patient Assessment & Plan Assessment Current Active Medications: Generic Name Dose Route Start Last Admin Trade Name Freq PRN Reason Stop Dose Admin Acetaminophen 650 mg 11/07/24 15:27 Acetaminophen 325 Mg Tablet PO 12/07/24 15:26 Q6H PRN Fever >101.5 Hydrocodone Bitart/Acetaminophen 1 tab 11/07/24 16:28 11/07/24 17:35 Hydrocodone/Apap 5/325 Tablet PO 11/12/24 16:27 1 tab Q6HR PRN Administration pain 6-10 Atorvastatin Calcium 20 mg 11/07/24 21:00 11/07/24 20:24 Atorvastatin Calcium 20 Mg Tablet PO 12/07/24 20:59 20 mg HS LAURA Administration Celecoxib 200 mg 11/07/24 21:00 11/07/24 20:24 Celecoxib 100 Mg Capsule PO 12/07/24 20:59 200 mg BID LAURA Administration Enoxaparin Sodium 40 mg 11/07/24 15:45 11/07/24 15:55 Enoxaparin Sod Inj 40 Mg/0.4 Ml Syringe SC 11/21/24 15:44 40 mg QDAY LAURA Administration Lactated Ringer's 1,000 mls @ 75 mls/hr 11/07/24 15:30 11/08/24 05:08 Lactated Ringers IV 11/08/24 18:09 75 mls/hr .[id number] LAURA Administration Ceftriaxone Sodium/Dextrose 1 gm in 50 mls @ 100 mls/hr 11/08/24 09:00 Rocephin/D5w 1gm Iv Premix IV 11/15/24 08:59 QDAY LAURA Magnesium Sulfate 4 gm in 50 mls @ 12.5 mls/hr 11/08/24 07:32 Magnesium Sulfate Ivpb IV 11/08/24 11:31 X1 ONE Lisinopril 40 mg 11/07/24 16:45 11/07/24 17:35 Lisinopril 20 Mg Tablet PO 12/07/24 16:44 40 mg QDAY LAURA Administration Melatonin 3 mg 11/07/24 21:00 11/07/24 21:26 Melatonin 3 Mg Tablet PO 12/07/24 20:59 3 mg HS LAURA Administration Pantoprazole Sodium 40 mg 11/07/24 15:45 11/07/24 15:54 Pantoprazole 40 Mg Tablet PO 12/07/24 15:44 40 mg QDAY LAURA Administration Tamsulosin HCl 0.4 mg 11/07/24 16:45 11/07/24 17:35 Tamsulosin Hcl 0.4 Mg Capsule PO 12/07/24 16:44 0.4 mg QDAY LAURA Administration Plan Mr. Alarcon is a 63 yo gentleman with remote hx of polio as a child with residual LLE wkness, HTN, obesity on wegovy, BPH (followed by [facility]), who was admitted due to sepsis 2/2 UTI (w bladder stone 2mm),pending Ucx and evidence of end organ damage as evidenced by elevated troponins now downtrending, ekg with sinus bradycardia asymptomatic, pending TSH, and continues on abx CTX (11/07- ) #sepsis with evidence of end organ damage 2/2 #UTI #Bladder stone 2mm #Gross hematuria qSOFA 2 SIRS: Febrile, hypoxic on intake, now on RA, satting well. pt endorses dysuria, and chills, no shortness of breath pt was febrile on intake with elevated trops pt continues to endorse mild dysuria Dx -CTAP with cystitis pattern, R horseshoe kidney with cysts, and hydronephrosis, calcified GB (see #cholecystitis vs cholecystitis r/o) -CXR negative -procalcitonin wnl -lactic acid wnl -hgb stable at 13 - UA + leukocyte esterase, -nitrites - Ucx pending -Bcx pending Tx - cont CTX 1gm qd (11/07- ) with intended 5-7 day course. - cont IVF LR 75ml/hr - Multimodal pain * APAP 650 q6hr PRN * [place] 5/325 q6hr prn * phenazopyridine 100mg TID scheduled for dysuria #query Pulm disease initial EKG read concerning for pulmonary disease pattern Dx -ECHO pending #sepsis with end organ damage 2/2 #Elevated troponin- downtrending on intake troponin elevated at 0.052, peaked at 0.281, now downtrending Dx -EKG with sinus bradycardia #sinus bradycardia pt asymptomatic, per prior EKG, previously noted sinus bradydcardia -CTM if pt becomes symptomatic -TSH pending #Hx urethral stricture with dilation 2021 pt voiding with bedside urinal, no belcher in place -bladder scan PRN #Cholecystitis vs cholelitiasis -R/o #Gallbladder calcifications on CTAP joyce sign negative [place] triad negative: no jaundice, no RUQ pain, no fevers Dx - GB ultrasound Gallbladder sludge, negative for cholelithiasis Negative for cholecytitis , Pancreatic head 4.1 cm - LFT wnl - Dr. Garcia curbsided to discuss calcified GB noted on CTAP, however GB ultrasound doesnt note calcifications, surgery not indicated at this time. Chronic #nerve pain -cont home celecoxib 200mg BID #HTN -cont home lisinopril 40mg qd #HLD -cont home atorva 20 mg qhs #BPH pt followed by Dr. Allred pt able to void, no belcher in place, was expelled penis while pushing during voiding. -cont home tamsulosin 0.4 mg PO qd #Obesity -A1c 5.9 -on wegovy (holding while inpatient) #hx polio pt reports chronic LLE wkness, pt able to ambulate at baseline w with walker Dispo: pending Ucx, pending ECHO, Bcx NGTD @24 hrs continues on Abx Diet: Low sodium diet Bowel Reg: Senna PRN, Mirilax PRN VTE ppx: lovenox 40 qd GI ppx: Protonix 40 qd Code status: DNR Case discussed with my senior resident Dr. Reis Case discussed with my attending Dr. Bimal Oliveira MD PGY-1 Attending Provider Attestation/Addendum Haily Smallwood, , attest that I was physically present for the santos portions of the service and evaluated the patient with the resident and I reviewed and discussed the case with the resident and agree with the resident's findings and plans of care as documented above Patient seen and evaluated this AM. He states he is feeling well. He continues to have burning in urine. He reports resolution of chills. Will continue to f/u urine and blood cutlures. Continue with rocephin. Patient denies any chest pain. Will obtain echocardiogram. Troponins downtrending.
--- NOTE | 2024-11-08 08:14 | EKG_ITS ---
[facility] Test Date: 2024-11-08 Pat Name: JUAN ANTONIO HERNANDEZ Department: Room: S267A Gender: Male Application Systems Architect: CISCO : 1960 Requested By: Keira Oliveira Order Number: [id number] Reading MD: Keira Oliveira Measurements Intervals [place] Rate: 55 P: 51 VA: 158 QRS: -35 QRSD: 108 T: -17 QT: 428 QTc: 412 Interpretive Statements SINUS BRADYCARDIA MARKED LEFT AXIS DEVIATION LOW QRS VOLTAGE IN PRECORDIAL LEADS POSSIBLE ANTERIOR MYOCARDIAL INFARCTION , OF INDETERMINATE AGE Compared to ECG 11/07/2024 11:04:07 Low QRS voltage now present Myocardial infarct finding now present Sinus tachycardia no longer present Ventricular premature complex(es) no longer present /store/S0/[id number]
[2024-11-08] MEDS: cefTRIAXone/D5w 1gm IV premix 1 GM/50 ML BAG IV (08:41)
[2024-11-08] MEDS: Magnesium Sulfate 4 GM Ivpb 4 GM/50 ML BAG IV (08:41)
[2024-11-08] MEDS: ENOXAPARIN SOD INJ 40 MG/0.4 ML SYRINGE SC (08:41)
[2024-11-08] MEDS: CELECOXIB 100 MG CAPSULE 200 MG PO ×2 (08:42→20:48)
[2024-11-08] MEDS: TAMSULOSIN HCL 0.4 MG CAPSULE PO (08:42)
[2024-11-08] MEDS: PANTOPRAZOLE 40 MG TABLET PO (08:42)
--- NOTE | 2024-11-08 09:17 | ECHO_ITS ---
Transthoracic Echo Report Ht (in): 66 Wt (lb): 232 Exam Location: Echo Lab Status: Inpatient Line Construction Supervisor: Ingrid Robles Indications: Procedure Performed: BP: 114 / 67 HR: 48 Technical Quality: Technically difficult study MEASUREMENTS (Male / Female) Normal Values 2D ECHO LV Diastolic Diameter PLAX 5.4 cm 4.2 - 5.9 / 3.9 - 5.3 cm LV Systolic Diameter PLAX 4.0 cm IVS Diastolic Thickness 0.8 cm 0.6 - 1.0 / 0.6 - 0.9 cm LVPW Diastolic Thickness 1.2 cm 0.6 - 1.0 / 0.6 - 0.9 cm LV Relative Wall Thickness 0.4 LVOT Diameter 2.3 cm Aortic Root Diameter 3.2 cm LA Systolic Diameter LX 4.4 cm 3.0 - 4.0 / 2.7 - 3.8 cm LV Ejection Fraction MOD 4C 50.5 % LV Cardiac Index MOD 4C 1586.1 cm?/min?m? LV Ejection Fraction 4C AL 51.8 % LV Cardiac Index 4C AL 1696.2 cm?/min?m? LA Volume Index 40.4 cm?/m? 16 - 28 cm?/m? Ascending Aorta Diameter 3.3 cm M-MODE Aortic Root Diameter MM 2.4 cm LA Systolic Diameter MM 5.9 cm LA Ao Ratio MM 2.5 AV Cusp Separation MM 1.8 cm DOPPLER AV Peak Velocity 145.0 cm/s AV Peak Gradient 8.4 mmHg AV Mean Gradient 5.0 mmHg AV Velocity Time Integral 33.8 cm LVOT Peak Velocity 108.0 cm/s LVOT Peak Gradient 4.7 mmHg LVOT Velocity Time Integral 20.9 cm LVOT Cardiac Index 1843.8 cm?/min?m? AV Area Cont Eq vti 2.6 cm? AV Area Cont Eq pk 3.1 cm? MV Area PHT 4.1 cm? MR Peak Velocity 516.0 cm/s MR Peak Gradient 106.5 mmHg Mitral E Point Velocity 86.4 cm/s Mitral A Point Velocity 66.5 cm/s Mitral E to A Ratio 1.3 LV E' Lateral Velocity 8.3 cm/s Mitral E to LV E' Lateral Ratio 10.4 LV E' Septal Velocity 5.7 cm/s Mitral E to LV E' Septal Ratio 15.3 TR Peak Velocity 311.0 cm/s TR Peak Gradient 38.7 mmHg PV Peak Velocity 109.0 cm/s PV Peak Gradient 4.8 mmHg FINDINGS Left Ventricle Normal left ventricular size, wall thickness, systolic function with no obvious regional wall motion abnormalities. Normal left ventricular diastolic filling pattern for age. The ejection fraction is visually estimated at 55-60%. Right Ventricle The right ventricular cavity size is at the upper limits of normal with normal systolic function. The estimated right ventricular systolic pressure, 44 mmHg. RAP 5. Left Atrium The left atrium is normal by two-dimensional, color flow and Doppler imaging with no structural abnormalities, no thrombus formation present. Right Atrium The right atrium is normal by two-dimensional imaging, color flow and Doppler imaging with no structural abnormalities, no thrombus formation present. Atrial Septum The interatrial septum appears normal with no evidence of a shunt. Aorta The aorta is normal by two-dimensional, color flow and Doppler interrogation. Mitral Valve The mitral valve is normal by two-dimensional, color flow and Doppler interrogation. Mild mitral regurgitation. Aortic Valve The aortic valve is trileaflet and normal by two-dimensional, color flow and Doppler interrogation. There is no significant aortic valve regurgitation. Tricuspid Valve The tricuspid valve is normal by two-dimensional, color flow and Doppler interrogation. There is mild tricuspid valve regurgitation. Pulmonic Valve The pulmonic valve is not well visualized. There is no significant pulmonic valve regurgitation. Vessels The pulmonary artery appears normal. The inferior vena cava pulmonary and hepatic veins appear normal. Pericardium The pericardium is normal by two-dimensional imaging. There is no significant pericardial effusion. CONCLUSIONS Indication: SOB - pulm disease? Normal LV size and funtion. Estimated EF at 55-60%. Stage 1 diastolic dysfunction. Normal RV size and function. The estimated RVSP mildly elevated 44 mmHg. RAP 5. Mild MR and TR. No pericardial effusion. Chandrakant Matute (Electronically Signed) Final Date: 08 November 2024 22:46
[2024-11-08 09:38] LABS: Troponin I 0.209 ng/mL (0.0-0.045)
--- NOTE | 2024-11-08 11:11 | PC.RT ---
Patient Craig Ly is a 63 Year old male admitted for Sepsis 2/2 UTI. SS met with patient at bedside to discuss discharge plan and verify demographic information. Patient reports he lives at home with family. Patient reports his , Lana Grewal is surrogate decision maker, [phone]. Patient is able to complete all ADL's independently and reports he utilizes a cane and FWW to assist with ambulation. At time of discharge patient will discharge home, will provide transportation. Next of kin: , Lana Grewal Discharge Plan: Home
--- NOTE | 2024-11-08 11:53 | PC.SS ---
SS follow up note; Urine and blood cultures pending. Patient will discharge home when medically cleared.
[2024-11-08 12:00] LABS: Cocci Serology, IgM Negative (Negative)
[2024-11-08 16:24] LABS: Troponin I 0.175 ng/mL (0.0-0.045)
[2024-11-08] MEDS: PHENAZOPYRIDINE HCL 100 MG TABLET PO (17:05)
[2024-11-08] MEDS: MELATONIN 3 MG TABLET PO (20:48)
[2024-11-08] MEDS: ATORVASTATIN CALCIUM 20 MG TABLET PO (20:48)
[2024-11-09] VITALS: BP 145/84; PULSE 49; RESP 17; TEMP 36.4; O2SAT 95
[2024-11-09 04:00] VITALS: BP 103/55; PULSE 45; PULSE 50; RESP 14; TEMP 36.2; O2SAT 96
[2024-11-09 05:42] VITALS: BMI 37.7
[2024-11-09 05:48] LABS: Basophils # (Auto) 0.0 Thou/mm3 (0.0-0.2); Basophils % (Auto) 0 % (0-2.5); Eosinophils # (Auto) 0.4 Thou/mm3 (0.0-0.5); Eosinophils % (Auto) 7 % (0-10); Hematocrit 34.1 % (41.0-53.0); Hemoglobin 11.7 g/dL (13.5-16.0); Immature Granulocytes Auto 0.02 Thou/mm3 (0.00-0.00); Lymphocytes # (Auto) 1.7 Thou/mm3 (1.0-4.8); Lymphocytes % (Auto) 29 % (10-50); Mean Corpuscular HGB Conc 34.3 g/dl (31.0-37.0); Mean Corpuscular Hemoglobin 29.9 pg (25.0-35.0); Mean Corpuscular Volume 87 fL (80-100); Monocytes # (Auto) 0.7 Thou/mm3 (0.0-0.8); Monocytes % (Auto) 11 % (0-12); Neutrophils # (Auto) 2.9 Thou/mm3 (1.8-7.7); Neutrophils % (Auto) 52 % (37-80); Nucleated Red Blood Cell # 0.00 Thou/mm3 (0.00-0.00); Nucleated Red Blood Cell % 0 /100 WBC (0); Platelet Count 115 Thou/mm3 (140-440); RDW Standard Deviation 44.8 fL (35.1-43.9); Red Blood Count 3.91 Miln/mm3 (4.50-5.90); White Blood Count 5.7 Thou/mm3 (3.8-10.6)
[2024-11-09 06:03] LABS: Alanine Aminotransferase 20 U/L (10-49); Albumin, Serum 3.6 gm/dL (3.4-4.8); Albumin/Globulin Ratio 1.6 (1.2-2.2); Alkaline Phosphatase 45 U/L (46-116); Anion Gap 8 (7-16); Aspartate Amino Transferase 28 U/L (0-34); BUN/Creatinine Ratio 11 Ratio (12-20); Bilirubin,Total 0.3 mg/dL (0.3-1.2); Blood Urea Nitrogen 8 mg/dL (9-23); Calcium 8.5 mg/dL (8.3-10.6); Calcium (Corrected) 8.8 mg/dL (8.5-10.1); Carbon Dioxide 29.0 mMol/L (20.0-31.0); Chloride 108 mMol/L (98-107); Creatinine (Component) 0.7 mg/dL (0.6-1.3); Estimated Creatinine Clearance 120.3 mL/min (>60); Globulin 2.3 gm/dL (2.3-3.5); Glucose 99 mg/dL (74-106); Magnesium 1.7 mg/dL (1.6-2.6); Osmolality,Calculated 287 (275-295); Phosphorous 3.9 mg/dL (2.4-5.1); Potassium 4.0 mMol/L (3.4-5.1); Sodium 145 mMol/L (136-145); Thyroid Stimulating Hormone 5.36 uIU/mL (0.55-4.78); Total Protein 5.9 gm/dL (5.7-8.2); eGFR > 60 See Note
[2024-11-09 08:00] VITALS: BP 154/88; PULSE 49; PULSE 61; RESP 19; TEMP 36.1; O2SAT 96
[2024-11-09] MEDS: ENOXAPARIN SOD INJ 40 MG/0.4 ML SYRINGE SC (08:42)
[2024-11-09 08:43] VITALS: BP 154/88; PULSE 61
[2024-11-09] MEDS: HYDROcodone/APAP 5/325 TABLET 1 TAB PO (08:43)
[2024-11-09] MEDS: PANTOPRAZOLE 40 MG TABLET PO (08:43)
[2024-11-09] MEDS: CELECOXIB 100 MG CAPSULE 200 MG PO (08:43)
[2024-11-09] MEDS: cefTRIAXone/D5w 1gm IV premix 1 GM/50 ML BAG IV (08:43)
[2024-11-09] MEDS: PHENAZOPYRIDINE HCL 100 MG TABLET PO ×2 (08:43→11:12)
[2024-11-09] MEDS: TAMSULOSIN HCL 0.4 MG CAPSULE PO (08:43)
[2024-11-09] MEDS: Magnesium Sulfate 2 GM Ivpb 2 GM/50 ML BAG IV (08:44)
[2024-11-09 09:26] LABS: Free T4 (Free Thyroxine) 1.13 ng/dL (0.89-1.76)
--- NOTE | 2024-11-09 11:35 | ESDS_ITS ---
<Statement entered by Haily Wallis DO - 11/10/24 15:56> I, Haily Wallis DO, attest that I was physically present for the santos portions of the service and evaluated the patient with the resident and I reviewed and discussed the case with the resident and agree with the resident's findings and plans of care as documented above <Statement entered by Grey Alfaro MD - 11/09/24 17:52> Patient seen and examined at bedside. I discussed and supervised with the senior internal auditor physician who took care of this patient. I personally saw and examined the patient. I agree with most of the assessment and plan. Plan of care discussed with attending Dr. Wallis. Grey Alfaro MD PGY-2 Planned Discharge Date 11/09/24 DS: Providers Provider Date of admission: 11/07/24 15:28 Primary care physician: Raphael Ruiz MD Admitting Provider: Haily Wallis DO Attending Provider on Admission: Haily Wallis DO Attending Provider on DC: Haily Wallis DO Discharging Provider: RESIDENT Madison DS: Diagnosis Problem List Completed Was Problem List Reviewed/Reconciled?: Yes Hospital Course Hospital Course Hospital course: Mr. 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 He reported holding his bladder earlier that day and subsequently noted blood in his urine, followed by fatigue and mild dyspnea. On arrival, he was hypoxic with oxygen saturation of 84% on room air and febrile to 104.5?F. Initial labs revealed a normal white count, stable hemoglobin, normal lactate, and elevated troponin concerning for possible demand-related injury. 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 Gallbladder ultrasound was negative for cholecystitis or cholelithiasis, showing only sludge. Chest X-ray was unremarkable. The patient was started on ceftriaxone and received an initial IV fluid bolus. Urine and blood cultures were obtained. Blood cultures showed no growth at 48 hours, and urine culture remained negative. Procalcitonin and lactic acid were within normal limits. He responded well to treatment, with resolution of fever and improvement in symptoms over the course of hospitalization. IV fluids were discontinued after clinical stabilization. Given the elevated troponin, the patient underwent serial monitoring. Troponin peaked at 0.281 and then downtrended. He remained hemodynamically stable and asymptomatic throughout, with no chest pain or ECG changes. EKG showed sinus bradycardia. Echocardiogram revealed normal left and right ventricular function with an EF of 55?60%, stage 1 diastolic dysfunction, and mildly elevated RV systolic pressure (44 mmHg), without pericardial effusion. These findings were not felt to require acute intervention. His TSH was mildly elevated at 5.36, and a free T4 at 1.14 possible subclinical hypothyroidism. He had no signs or symptoms of overt hypothyroidism during hospitalization. No further intervention needed. Dysuria and hematuria resolved during admission. He was able to urinate without difficulty and remained afebrile. Pain was managed with acetaminophen and [place] as needed. He tolerated oral intake, ambulated with assistance using a walker (at his baseline), and had no further infectious signs. He completed a 3-day course of IV antibiotics and will continue 5 days of keflex on dc. He met discharge criteria with resolution of fever, no leukocytosis, negative cultures, stable vital signs, improved symptoms, and tolerating oral intake. So patient was deemed clinically stable for discharge with outpatient follow-up. Discharge Diagnoses (During Admission): #Sepsis (resolved) #UTI with bladder stone #Bladder_stone (2 mm) #Gross_hematuria #Type_2_NSTEMI (resolved, downtrending troponin) #Sinus_bradycardia (asymptomatic) #Stage_1_diastolic_dysfunction #Pulmonary_hypertension (mild, echo RVSP 44) #Gallbladder_sludge #Gallbladder_calcification #Subclinical_hypothyroidism #Hypertension #Hyperlipidemia #Obesity #BPH #Remote_polio with residual LLE weakness #Nerve_pain Discharge Plans: You have been started on the following medications: -Kelfex 500mg twice daily for 5 days Please take all other medications as previously prescribed. Please follow up with your primary doctor in 7-10 days. Return to the ED if you develop new or worsening symptoms ----- Plan discussed with attending physician Dr. Wallis and senior resident Dr. Dandy MD PGY-1 Internal Medicine Time Spent with Patient Time attestation: Total time spent providing and/or coordinating discharge services: Time spent: Greater than 30 minutes Exam Vital Signs Temp Pulse Resp BP Pulse Ox O2 Del Method O2 Flow Rate 97.0 F 61 19 154/88 H 96 Room Air 3 11/09/24 08:00 11/09/24 08:43 11/09/24 08:00 11/09/24 08:43 11/09/24 08:00 11/09/24 08:00 11/07/24 13:22 Narrative Exam Physical Exam at Discharge: General: No acute distress, alert, conversant, resting comfortably in bed HEENT: Normocephalic, atraumatic, PERRL, moist mucous membranes Neck: Supple, no lymphadenopathy or JVD Cardiovascular: RRR, normal S1/S2, no murmurs or rubs, no edema Respiratory: Lungs clear to auscultation bilaterally, no rales or wheezing GI: Soft, non-tender, non-distended, normoactive bowel sounds, no masses : No CVA tenderness, voiding without difficulty Neuro: Alert and oriented x3, no focal deficits, LLE weakness as baseline Skin: No rash, no wounds, normal turgor Psych: Normal mood and affect Discharge Plan Plan Patient Disposition: HOME (Self Care) Patient condition on transfer: Stable Care Plan Goals: You have been started on the following medications: -Kelfex 500mg twice daily for 5 days Please take all other medications as previously prescribed. Please follow up with your primary doctor in 7-10 days. Return to the ED if you develop new or worsening symptoms Prescriptions/Referrals Prescriptions/Med Rec: New cephalexin 500 mg capsule 500 mg PO BID 5 Days Qty: 10 0RF Continued Wegovy 0.25 mg/0.5 mL pen injector 0.25 mg SUBCUT Q7D lisinopril 40 mg tablet 40 mg PO QDAY Patient Comments: TAKE ONE TABLET BY MOUTH EVERY DAY. tamsulosin 0.4 mg capsule 0.4 mg PO Q24H Patient Comments: TAKE ONE CAPSULE BY MOUTH EVERY DAY 1/2 hour following the same meal each day.. celecoxib 200 mg capsule 200 mg PO Q12H Patient Comments: TAKE 1 CAPSULE BY MOUTH TWICE A DAY atorvastatin 20 mg tablet 20 mg PO QDAY Patient Comments: TAKE ONE TABLET BY MOUTH EVERY DAY ibuprofen 800 mg tablet 800 mg PO Q8H PRN (Reason: pain) Patient Comments: TAKE ONE TABLET BY MOUTH THREE TIMES DAILY NEEDED Referrals: Raphael Ruiz MD [Primary Care Provider] - Patient/Caregiver Discharge Instructions Discharge Activity: activity as tolerated Education Materials: Understanding Post Sepsis Syndrome, Urinary Tract Infections in Men, Understanding Urinary Tract ..., Identifying Your Heart Risks, Understanding Sepsis Print Language: Setswana Stand Alone Forms: Teresa Award Info., Patient Portal Info Letter Discharge Order Discharge Orders: Discharge (Routine); Ordered 11/09/24 Ordered By: Francois Murray Quality Discharge Quality Measures VTE prophylaxis
[2024-11-09 11:44] LABS: Cocci Serology, IgG Negative (Negative)
[2024-11-09 12:00] VITALS: BP 129/93; PULSE 48; PULSE 49; RESP 15; TEMP 36.1; O2SAT 97
== END 2024-11-09 12:54 | disposition home or self-care (01) | DRG 871 ==
LOC: SERX 14:53 → SERHOLD 15:45 → S2NX 19:53
PROVIDERS: Physician Assistant Medical; Student in an Organized Health Care Education/Training Program; Admitting Provider Internal Medicine; Emergency Provider Emergency Medicine; PCP Internal Medicine; Visit Provider Internal Medicine
DX: A41.9 Sepsis, unspecified organism (principal); I21.A1 Myocardial infarction type 2; N13.6 Pyonephrosis; I10 Essential (primary) hypertension; N40.0 Benign prostatic hyperplasia without lower urinary tract symptoms; E66.9 Obesity, unspecified; Z68.37 Body mass index [BMI] 37.0-37.9, adult; R09.02 Hypoxemia; E78.5 Hyperlipidemia, unspecified; E03.8 Other specified hypothyroidism; Q63.1 Lobulated, fused and horseshoe kidney; R65.20 Severe sepsis without septic shock; E11.65 Type 2 diabetes mellitus with hyperglycemia; R00.1 Bradycardia, unspecified; Z86.12 Personal history of poliomyelitis; N21.0 Calculus in bladder; R79.89 Other specified abnormal findings of blood chemistry; K82.8 Other specified diseases of gallbladder; Z66 Do not resuscitate
CPT/HCPCS: 36415; 71045; 74177; 76705; 80053; 81001; 83036; 83605; 83735; 83880; 84100; 84145; 84439; 84443; 84484; 85025; 85610; 85730; 86331; 86635; 86850; 86900; 86901; 87040; 87086; 87400; 87502; 87811; 93005; 93306; 96361; 96365; 96366; 96375; 99284; A4649; J0696; J1650; J2405; J3010; J3475; J7030; J7050; J7120; Q9967; A9270

== ENCOUNTER → 2024-12-29 | Outpatient (CLI) | payer MEDICARE, MEDICAID, SELFPAY ==
--- NOTE | 2024-12-29 11:00 | XR_ITS ---
Examination: CT chest, without intravenous contrast. Sagittal and coronal 2-D reconstructions. Exam date and time: December 29, 2024 1133 hours, comparison April 21, 2023 INDICATIONS: 8mm pulmonary nodule right lower lobe on CT chest study April 21, 2023 and 8mm pulmonary nodule right lower lobe on CT chest May 11, 2018 CTDI:vol (mGy) 17.2 DLP: (mGycm) 636 Technique: Multiple 3.0 mm axial sections of the chest to been obtained. Bone and lung density settings are obtained. Sagittal and coronal 2-D reconstructions have been obtained. Low dose protocols were performed. One or more of the following dose reduction techniques were used; automated exposure control, adjustment of the mA and/or KV according to patient size, use of iterative reconstruction technique. Findings: No thoracic aortic aneurysm dilatation Pulmonary artery segments are not enlarged. Mild enlargement cardiac contour. 2 mm pulmonary nodule left midlung in retrospect noted on the prior study Stable 8mm pulmonary nodule right lower lobe No new pulmonary nodules No pneumonia pulmonary edema or pleural disease Gallbladder wall appears thickened No visualized liver or splenic lesion IMPRESSION: Stable pulmonary nodules compared to the prior studies, no new pulmonary nodules Recommend hepatobiliary sonography follow-up to exclude gallbladder wall thickening
== END | disposition home or self-care (01) ==
PROVIDERS: Referring Provider Internal Medicine; Visit Provider Internal Medicine
DX: R91.8 Other nonspecific abnormal finding of lung field (principal)
CPT/HCPCS: 71250

== ENCOUNTER → 2025-01-30 | Outpatient (CLI) | payer MEDICARE, MEDICAID, SELFPAY ==
[2025-01-30 11:16] LABS: Basophils # (Auto) 0.0 Thou/mm3 (0.0-0.2); Basophils % (Auto) 0 % (0-2.5); Eosinophils # (Auto) 0.3 Thou/mm3 (0.0-0.5); Eosinophils % (Auto) 5 % (0-10); Hematocrit 42.1 % (41.0-53.0); Hemoglobin 14.1 g/dL (13.5-16.0); Immature Granulocytes Auto 0.02 Thou/mm3 (0.00-0.00); Lymphocytes # (Auto) 1.6 Thou/mm3 (1.0-4.8); Lymphocytes % (Auto) 30 % (10-50); Mean Corpuscular HGB Conc 33.5 g/dl (31.0-37.0); Mean Corpuscular Hemoglobin 29.9 pg (25.0-35.0); Mean Corpuscular Volume 89 fL (80-100); Monocytes # (Auto) 0.3 Thou/mm3 (0.0-0.8); Monocytes % (Auto) 7 % (0-12); Neutrophils # (Auto) 3.0 Thou/mm3 (1.8-7.7); Neutrophils % (Auto) 57 % (37-80); Nucleated Red Blood Cell # 0.00 Thou/mm3 (0.00-0.00); Nucleated Red Blood Cell % 0 /100 WBC (0); Platelet Count 162 Thou/mm3 (140-440); RDW Standard Deviation 47.5 fL (35.1-43.9); Red Blood Count 4.71 Miln/mm3 (4.50-5.90); White Blood Count 5.3 Thou/mm3 (3.8-10.6)
[2025-01-30 11:27] LABS: Alanine Aminotransferase 36 U/L (10-49); Albumin, Serum 4.4 gm/dL (3.4-4.8); Albumin/Globulin Ratio 1.8 (1.2-2.2); Alkaline Phosphatase 63 U/L (46-116); Anion Gap 9 (7-16); Aspartate Amino Transferase 32 U/L (0-34); BUN/Creatinine Ratio 16 Ratio (12-20); Bilirubin,Total 0.4 mg/dL (0.3-1.2); Blood Urea Nitrogen 11 mg/dL (9-23); Calcium 9.0 mg/dL (8.3-10.6); Calcium (Corrected) 9.0 mg/dL (8.5-10.1); Carbon Dioxide 27.4 mMol/L (20.0-31.0); Cardiac Risk Estimate 4.1 RATIO (4.0-6.7); Chloride 108 mMol/L (98-107); Cholesterol 140 mg/dL (132-200); Creatinine (Component) 0.7 mg/dL (0.6-1.3); Free T4 (Free Thyroxine) 1.35 ng/dL (0.89-1.76); Globulin 2.4 gm/dL (2.3-3.5); Glucose 99 mg/dL (74-106); HDL Cholesterol 34 mg/dL (40-60); LDL Cholesterol,Calculated 77 mg/dL (0-130); Osmolality,Calculated 286 (275-295); Potassium 4.2 mMol/L (3.4-5.1); Sodium 144 mMol/L (136-145); Thyroid Stimulating Hormone 1.30 uIU/mL (0.55-4.78); Total Protein 6.8 gm/dL (5.7-8.2); Triglycerides 147 mg/dL (30-150); eGFR > 60 See Note
== END | disposition home or self-care (01) ==
PROVIDERS: PCP Nurse Practitioner Family; Referring Provider Nurse Practitioner Family; Visit Provider Nurse Practitioner Family
DX: I10 Essential (primary) hypertension (principal)
CPT/HCPCS: 36415; 80053; 80061; 83036; 84439; 84443; 85025